=== PATIENT | female | born 1970 | race Caucasian/White ===

== ENCOUNTER 2018-11-16 20:34 | Emergency (ER) | payer BC ==
[2018-11-16 21:01] VITALS: BP 123/79
[2018-11-16] MEDS ORDERED: Tetracaine 0.5% OPTH.SOL 4 ML* 1 DROP BTL BOTH EYES ONE (21:45)
[2018-11-16] MEDS: Fluorescein Sodium TOPICAL* 1 MG TEST STRIP OPHTHALMIC ONE ×2 (21:55→22:14)
== END 2018-11-16 22:10 | disposition left against medical advice (07) ==
LOC: UCCORT 20:34
DX: H57.89 Other specified disorders of eye and adnexa (principal)
CPT/HCPCS: 99212; A9270-GY; G0463